=== PATIENT | male | born 1980 | race Caucasian/White ===

== ENCOUNTER → 2018-08-12 11:03 | Outpatient (CLI) | payer OTHER, SELFPAY ==
--- NOTE | 2018-08-12 11:08 | DI.RAD.S_ITS ---
PROCEDURE: XR WRIST LT MIN 3V INDICATIONS: Left wrist pain TECHNIQUE: 4 views of the wrist were acquired. COMPARISON: None. FINDINGS: Bones: No fractures or dislocations. No suspicious bony lesions. Scaphoid view: No trauma to the scaphoid is seen. A distal scaphoid subchondral cyst or coincidentally found medullary cyst is present, best seen on one view only, measuring up to 3 mm. Soft tissues: No suspicious soft tissue calcifications. IMPRESSION: No acute trauma found. No subluxation identified. Incidental finding of a 3 mm distal scaphoid subchondral/medullary bone cyst. No followup recommended. Dictated by: Baldev Barton M.D. on 08/12/2018 at 10:37 Approved by: Baldev Barton M.D. on 08/12/2018 at 10:39
== END ==
PROVIDERS: PCP Internal Medicine; Visit Provider Physician Assistant
DX: M25.532 Pain in left wrist (principal); M85.632 Other cyst of bone, left forearm
CPT/HCPCS: 73110